=== PATIENT | male | born 1990 | race American Indian/Alaskan Native ===

== ENCOUNTER 2016-06-10 16:50 | Emergency (ER) | payer OTHER ==
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
[2016-06-10 18:41] LABS: Bilirubin,Urine NEG (Negative); Blood,Urine NEG (Negative); Ketones,Urine NEG (Negative); Leukocyte Esterase,Urine NEG (Negative); Nitrite,Urine NEG (Negative); Protein,Urine <15 mg/dL mg/dL (Negative); Urobilinogen,Urine < 2.0 mg/dL (<2.0)
[2016-06-10] MEDS ORDERED: TORADOL IM ONE (18:55)
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
[2016-06-10 20:22] VITALS: BP 122/80
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
--- NOTE | 2016-06-11 08:15 | XRay Report ---
RIGHT HUMERUS: AP and lateral views of the humerus demonstrate normal mineralization and contours for this patient's age. No destructive changes are noted and the adjacent soft tissues are normal. IMPRESSION: Normal right humerus.
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
--- NOTE | 2016-06-11 08:16 | XRay Report ---
AP PELVIS: AP view of the pelvis shows normal pelvic contour and soft tissues. The hips are symmetric and within normal limits as are the sacroiliac joints. IMPRESSION: Normal pelvis.
== END 2016-06-10 20:20 | disposition home or self-care (01) ==
LOC: ED 16:50
DX: M79.601 Pain in right arm (principal); M25.562 Pain in left knee; M54.5 Low back pain; F17.200 Nicotine dependence, unspecified, uncomplicated; V89.2XXA Person injured in unspecified motor-vehicle accident, traffic, initial encounter; Y93.89 Activity, other specified; Y99.8 Other external cause status; Y92.89 Other specified places as the place of occurrence of the external cause
CPT/HCPCS: 29505; 71010; 72070; 72100; 72170; 73060; 73562; 81001; 96372; 99284; J1885